=== PATIENT | female | born 1970 | race Caucasian/White ===

== ENCOUNTER 2021-06-03 13:54 | Outpatient (REF) | payer OTHER, SELFPAY ==
[2021-06-04 09:36] LABS: CT PCR NOT DETECTED (Not Detect.); NG PCR NOT DETECTED (Not Detect.)
[2021-06-05 20:41] LABS: Follicle Stimulating Hormone 84.3 mIU/mL; Lutenizing Hormone 46.8 mIU/mL
== END 2021-06-03 13:55 | disposition home or self-care (01) ==
LOC: HO.LAB 13:54
PROVIDERS: PCP Family Medicine; Visit Provider Obstetrics & Gynecology
DX: Z11.3 Encounter for screening for infections with a predominantly sexual mode of transmission (principal); R10.2 Pelvic and perineal pain; N91.2 Amenorrhea, unspecified; N90.4 Leukoplakia of vulva
CPT/HCPCS: 36415; 83001; 83002; 87491; 87591

== ENCOUNTER 2021-06-24 11:27 | Outpatient (REF) | payer OTHER, SELFPAY ==
--- NOTE | ~2021-06-24 | US_ITS ---
EXAMINATION: US PELVIS CLINICAL INFORMATION: Pelvic and perineal pain. COMPARISON: Pelvic ultrasound dated 10/10/2013. TECHNIQUE: Ultrasound of the pelvis is performed using both transabdominal and transvaginal transducers along with Doppler. Transvaginal imaging is performed due to inadequate visualization transabdominally. FINDINGS: Uterus: Retroverted/retroflexed measuring 7.0 x 3.1 x 4.0 cm. The endometrial stripe measures up to 0.2 cm. The cervix is unremarkable. Mild free fluid in the cul-de-sac. Right ovary: Suboptimally visualized. No right adnexal abnormality. Left ovary: 2.8 x 1.2 x 1.5 cm with a volume of 2.5 mL. Doppler showed no abnormal vascular flow. US/US pelvic and transvaginal IMPRESSION: 1. Retroverted/retroflexed uterus without abnormality. Mild free fluid in the cul-de-sac is likely physiologic. 2. Nonvisualization of the right ovary without right adnexal abnormality. No left ovarian abnormality.
== END 2021-06-24 11:28 | disposition home or self-care (01) ==
LOC: HO.US 11:27
PROVIDERS: PCP Family Medicine; Visit Provider Obstetrics & Gynecology
DX: R10.2 Pelvic and perineal pain (principal)
CPT/HCPCS: 76830; 76856

== ENCOUNTER 2021-07-02 08:31 | Outpatient (REF) | payer OTHER, SELFPAY ==
[2021-07-03 02:48] LABS: CT PCR NOT DETECTED (Not Detect.); NG PCR NOT DETECTED (Not Detect.)
[2021-07-03 09:12] LABS: BV Int Neg Control Negative (Negative); BV Int Pos Control Positive (Positive)
== END 2021-07-02 08:32 | disposition home or self-care (01) ==
LOC: HO.LAB 08:31
PROVIDERS: PCP Family Medicine; Visit Provider Obstetrics & Gynecology
DX: N90.4 Leukoplakia of vulva (principal); N95.1 Menopausal and female climacteric states; R10.2 Pelvic and perineal pain
CPT/HCPCS: 57420; 56821; 87480; 87491; 87510; 87591; 87660; 88305; 88312

== ENCOUNTER → 2021-07-20 10:36 | Outpatient (BNVA) | payer OTHER, SELFPAY | PROVIDERS: PCP Family Medicine; Visit Provider Obstetrics & Gynecology ==